=== PATIENT | female | born 1970 | race Caucasian/White ===

== ENCOUNTER → 2024-06-12 15:43 | Outpatient (REF) | payer OTHER, SELFPAY | LOC: WDC 15:43 | PROVIDERS: ATTENDING PHYSICIAN Obstetrics & Gynecology | DX: Z12.31 Encounter for screening mammogram for malignant neoplasm of breast (principal) | CPT/HCPCS: 77063; 77067 ==

== ENCOUNTER → 2024-07-07 13:50 | Outpatient (REF) | payer OTHER, SELFPAY | LOC: RAD 13:50 | PROVIDERS: ATTENDING PHYSICIAN Orthopaedic Surgery | DX: M25.552 Pain in left hip (principal) | CPT/HCPCS: 27093; 73525 ==

== ENCOUNTER → 2024-07-09 13:41 | Outpatient (REF) | payer OTHER, SELFPAY | LOC: RAD 13:41 | PROVIDERS: ATTENDING PHYSICIAN Orthopaedic Surgery; FAMILY PHYSICIAN Internal Medicine | DX: M54.10 Radiculopathy, site unspecified (principal) | CPT/HCPCS: 27095; 73525; 73722 ==

== ENCOUNTER → 2024-08-11 11:10 | Outpatient (REF) | payer OTHER, SELFPAY | LOC: RAD 11:10 | PROVIDERS: ATTENDING PHYSICIAN Physician Assistant; FAMILY PHYSICIAN Internal Medicine | DX: R59.0 Localized enlarged lymph nodes (principal) | CPT/HCPCS: 76536 ==

== ENCOUNTER → 2025-05-12 14:41 | Outpatient (REF) | payer OTHER, SELFPAY | LOC: PAVMRI 14:41 | PROVIDERS: ATTENDING PHYSICIAN Family Medicine Sports Medicine | DX: S93.602A Unspecified sprain of left foot, initial encounter (principal) | CPT/HCPCS: 73718 ==